=== PATIENT | female | born 1995 | race Caucasian/White ===

== ENCOUNTER 2024-04-27 03:11 | Emergency (ER) | payer BC ==
[~2024-04-27] VITALS: Ht 162.6 cm; Wt 149.7 kg
[2024-04-27 03:35] VITALS: BP_SYST 154; PULSE 109; RESP 16; TEMP 97.7; O2SAT 99
[2024-04-27] MEDS ORDERED: DEC4 PO (03:40)
== END 2024-04-27 03:45 | disposition home or self-care (01) ==
LOC: SED 03:11
DX: J02.9 Acute pharyngitis, unspecified (principal); R13.10 Dysphagia, unspecified; Z79.899 Other long term (current) drug therapy
CPT/HCPCS: 99283